=== PATIENT | male | born 1990 | race Caucasian/White ===

== ENCOUNTER 2019-05-07 21:45 | Emergency (ER) | payer OTHER ==
[~2019-05-07] VITALS: Ht 182.9 cm; Wt 99.8 kg
[~2019-05-07 21:45] MED LIST: NORCO 5-325 TA1 EACH PO; NORFLEX100 MG PO
[2019-05-07] MEDS ORDERED: ERYTHROMYCIN E3.5 G3 OPHTHALMIC (21:58)
[2019-05-07 22:02] VITALS: BP 131/61
== END 2019-05-07 22:04 | disposition home or self-care (01) ==
LOC: M.ERS 21:45
DX: H10.9 Unspecified conjunctivitis (principal); F17.210 Nicotine dependence, cigarettes, uncomplicated